=== PATIENT | female | born 1965 | race Caucasian/White ===

== ENCOUNTER 2019-02-08 00:46 | Emergency (ER) | payer SELFPAY ==
[~2019-02-08] VITALS: Ht 149.9 cm; Wt 99.8 kg
[2019-02-08 00:51] VITALS: BP 142/70
--- NOTE | 2019-02-08 00:51 | NUR ---
TO BED # 11 AMBULATORY
--- NOTE | 2019-02-08 00:51 | NUR ---
53 Y/O FEMALE REPORTS TO THE ED WITH COMPLAINTS OF HEART PALPATATIONS AND NERVOUSNESS AFTER TAKING 100 MG OF TRAMADOL FROM A FRIEND 3 HOURS PRIOR TO COMING IN TO THE ED. PT COMPLAINS OF CHRONIC LOWER BACK PAIN. SHE TOOK THE MEDICATION FOR PAIN BUT BECAME NERVOUS ONE HOUR AFTER TAKING MEDICATION. PT REQUEST DR EVALUATION AT THIS TIME. UPON ARRIVAL HR 82, NO SOB/DYSPNEA, NORMAL SINUS RHYTHM. 0/10 PAIN. VSS. ER AWARE. CONINUE TO MONITOR.
[2019-02-08 01:30] VITALS: BP 142/70
--- NOTE | 2019-02-08 01:30 | NUR ---
PT D/C BY DR PUGH. DC INTRUCTIONS GIVEN TO PATIENT BY DR PUGH. PT INSTRUCTED TO FOLLOWUP WITH PCP AND WHEN TO RETURN TO THE ER. PT DC'D WITH NO SOB/DYSPNEA, NO CHEST PAIN, NO PALPITATIONS, NO ANXIETY. VSS. PT VERBALIZED UNDERSTANDING OF DC INSTRUCTIONS. ALL QUESTIONS ANSWERED.
== END 2019-02-08 01:30 | disposition home or self-care (01) ==
LOC: MED 00:46
DX: F41.9 Anxiety disorder, unspecified (principal); T40.4X5A Adverse effect of other synthetic narcotics, initial encounter; M54.5 Low back pain; G89.29 Other chronic pain; Z90.710 Acquired absence of both cervix and uterus; Y92.89 Other specified places as the place of occurrence of the external cause
CPT/HCPCS: 99281